=== PATIENT | female | born 2000 | race African-American/Black ===

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

== ENCOUNTER 2020-02-09 11:51 | Emergency (ER) | payer OTHER ==
[~2020-02-09] VITALS: Ht 154.9 cm; Wt 73.0 kg
[~2020-02-09 11:51] MED LIST changes: +PHEN100T82 PO; +SULF1TAB24 PO
[2020-02-09 12:25] LABS: BILIRUBIN,URINE NEGATIVE (NEG); CLARITY,URINE CLOUDY; COLOR,URINE YELLOW; NITRITE,URINE NEGATIVE (NEG); PH,URINE 6.5 (<5.0-8.0); PROTEIN,URINE NEGATIVE (NEG-TRACE); UROBILINOGEN,URINE 0.2 mg/dL (0.2 mg/dL)
[2020-02-09 12:37] LABS: BACTERIA,URINE MODERATE /HPF (0-FEW); RBC,URINE 0 /HPF (0-2); WBC,URINE 20-40 /HPF (0-4)
[2020-02-09 13:25] VITALS: BP 119/71
[2020-02-09] MEDS ORDERED: TRIA15CR TP (14:01)
[2020-02-09] MEDS ORDERED: CEPH-264 PO (14:01)
--- NOTE | 2020-02-09 14:02 | PHYS DOC ---
Past Medical History Past Medical History: Asthma Past Surgical History: No Surgical History Smoking Status: Current Some Day Smoker Alcohol Use: None Drug Use: None General Adult EDM: Chief Complaint: PAIN ON URINATION HPI: HPI: Patient is a 19 year old female who presents with low mid abdominal dull aching for the last 2 weeks and for the last 3 days she has had some blood in her urine. She states for the last couple weeks she is also had small amount of vaginal discharge but states that she does not have any sexually transmitted diseases and does not want be treated for them today. 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 Patient is complaining of burning on urination also. Patient also complains of a 1 week left upper arm rash that is itchy and is not going away. Patient denies nausea, vomiting, diarrhea, headache, dizziness, fever, back pain, chest pain, shortness of air. Review of Systems: Review of Systems: Constitutional: Denies fever or chills. [] Eyes: Denies change in visual acuity. [] HENT: Denies nasal congestion or sore throat. [] Respiratory: Denies cough or shortness of breath. [] Cardiovascular: Denies chest pain or edema. [] GI: + abdominal pain, denies nausea, vomiting, bloody stools or diarrhea. [] : + dysuria. + Scant vaginal discharge [] Musculoskeletal: Denies back pain or joint pain. [] Integument: + Left arm rash. [] Neurologic: Denies headache, focal weakness or sensory changes. [] Endocrine: Denies polyuria or polydipsia. [] Lymphatic: Denies swollen glands. [] Psychiatric: Denies depression or anxiety. [] Heart Score: Risk Factors: Risk Factors: DM, Current or recent (<one month) smoker, HTN, HLP, family history of CAD, obesity. Risk Scores: Score 0 - 3: 2.5% MACE over next 6 weeks - Discharge Home Score 4 - 6: 20.3% MACE over next 6 weeks - Admit for Clinical Observation Score 7 - 10: 72.7% MACE over next 6 weeks - Early Invasive Strategies Allergies: Allergies: Allergies Coded Allergies Type Severity Reaction Last Updated Verified No Known Drug Allergies 05/12/17 No Physical Exam: PE: Constitutional: Well developed, well nourished, no acute distress, non-toxic appearance. [] HENT: Normocephalic, atraumatic, bilateral external ears normal, oropharynx moist, no oral exudates, nose normal. [] Eyes: PERRLA, EOMI, conjunctiva normal, no discharge. [] Neck: Normal range of motion, no tenderness, supple, no stridor. [] Cardiovascular:Heart rate regular rhythm, no murmur [] Lungs & Thorax: Bilateral breath sounds clear to auscultation [] Abdomen: Bowel sounds normal, soft, low mid tenderness, no masses, no pulsatile masses. [] Skin: Warm, dry, no erythema, left upper arm contact dermatitis rash. [] Back: No tenderness, no CVA tenderness. [] Extremities: No tenderness, no cyanosis, no clubbing, ROM intact, no edema. [] Neurologic: Alert and oriented X 3, normal motor function, normal sensory function, no focal deficits noted. [] Psychologic: Affect normal, judgement normal, mood normal. [] Current Patient Data: Labs: Laboratory Tests Test 02/09/20 12:10 02/09/20 12:12 Urine Collection Type Void Urine Color Yellow Urine Clarity Cloudy Urine pH 6.5 (<5.0-8.0) Urine Specific Aroda 1.020 (1.000-1.030) Urine Protein Negative mg/dL (NEG-TRACE) Urine Glucose (UA) Negative mg/dL (NEG) Urine Ketones (Stick) Negative mg/dL (NEG) Urine Blood Trace (NEG) Urine Nitrite Negative (NEG) Urine Bilirubin Negative (NEG) Urine Urobilinogen Dipstick 0.2 mg/dL (0.2 mg/dL) Urine Leukocyte Esterase Moderate (NEG) Urine RBC 0 /HPF (0-2) Urine WBC 20-40 /HPF (0-4) Urine Squamous Epithelial Cells Many /LPF Urine Bacteria Moderate /HPF (0-FEW) POC Urine HCG, Qualitative Hcg negative (Negative) Vital Signs: Vital Signs Date Time Temp Pulse Resp B/P (MAP) Pulse Ox O2 Delivery O2 Flow Rate FiO2 02/09/20 13:25 98.1 74 16 119/71 (87) 99 Room Air 98.1 EKG: EKG: [] Radiology/Procedures: Radiology/Procedures: [] Course & Med Decision Making: Course & Med Decision Making Pertinent Labs and Imaging studies reviewed. (See chart for details) See HPI. Patient has what looks like a contact dermatitis type rash to the left upper inner arm. Patient denies using any new lotions or soaps. There is no drainage or signs of infection. There is no swelling to the extremity. Abdomen is soft and nontender. No CVA tenderness. Afebrile. Urinalysis shows infection. I have also sent off for chlamydia gonorrhea check. Patient has a history of HPV, asthma and smoker. Patient is given triamcinolone cream for her rash and an antibiotic for her urinary tract infection. Patient is to follow-up with a medical office administrator or her primary care provider. [] Dragon Disclaimer: Dragon Disclaimer: This electronic medical record was generated, in whole or in part, using a voice recognition dictation system. Departure Departure Impression: Primary Impression: Urinary tract infection Qualified Codes: N39.0 - Urinary tract infection, site not specified; R31.9 - Hematuria, unspecified Additional Impression: Rash and nonspecific skin eruption Disposition: ID HOME SELF CARE/HOMELESS Referrals: LEONARD AVILES MD (PCP) Patient Instructions: Contact Dermatitis, [id number], Sexually Transmitted Disease, Urinary Tract Infection Additional Instructions: Follow-up with your primary care provider soon as possible. I have added on a Chlamydia gonorrhea test to your urine today you will be called in 48 hours only if it is positive. Take antibiotic as prescribed and drink plenty of fluids. Scripts Triamcinolone Acetonide (TRIAMCINOLONE ACETONIDE 0.5% CREAM) 15 Gm Cream..g. 1 RABIA TP BID for 5 Days, #15 GM 1 Refill Prov: PAULA HERNANDEZ QUANTITATIVE ANALYST DEVELOPER 02/09/20 Cephalexin (KEFLEX) 500 Mg Capsule 1 CAP PO BID for 7 Days, #14 CAP 0 Refills Prov: PAULA HERNANDEZ QUANTITATIVE ANALYST DEVELOPER 02/09/20 PAULA HERNANDEZ APRN Feb 09, 2020 14:02
== END 2020-02-09 14:15 | disposition home or self-care (01) ==
LOC: ER 11:51
DX: N39.0 Urinary tract infection, site not specified (principal); R31.9 Hematuria, unspecified; L25.9 Unspecified contact dermatitis, unspecified cause; J45.909 Unspecified asthma, uncomplicated; F17.200 Nicotine dependence, unspecified, uncomplicated
CPT/HCPCS: 81001; 81025; 87086; 87491; 87591; 99283

== ENCOUNTER 2020-12-01 02:50 | Emergency (ER) | payer OTHER ==
[~2020-12-01] VITALS: Ht 152.4 cm; Wt 77.3 kg
[~2020-12-01 02:50] MED LIST changes: +CEPH-264 PO; +TRIA15CR TP
[2020-12-01 03:06] LABS: BILIRUBIN,URINE NEGATIVE (NEG); CLARITY,URINE CLOUDY; COLOR,URINE YELLOW; NITRITE,URINE NEGATIVE (NEG); PROTEIN,URINE NEGATIVE (NEG-TRACE)
--- NOTE | 2020-12-01 03:14 | PHYS DOC ---
Past Medical History Past Medical History: Asthma Past Surgical History: No Surgical History Smoking Status: Current Some Day Smoker Alcohol Use: None Drug Use: None General Adult EDM: Chief Complaint: ABDOMINAL PAIN HPI: HPI: Patient is a 20 year old female who presents with 3 weeks of abdominal discomfort. Described as lower abdominal pain. Constant. Radiates to both the left and right side from the suprapubic area. Denies dysuria, but does endorse frequency and urgency. States LMP was approximately 10 days ago. Sexually active with one partner currently, 3 in the last year. Does not use any form of contraception. States that she is trying to get . States she had 1 day of white discharge, but otherwise denies any vaginal discharge. She does have a history of gonorrhea and chlamydia, last 1 year ago. States that she did receive full course of treatment. No vaginal bleeding outside of her usual menstrual cycle. Some mild nausea, but no vomiting. No diarrhea or constipation. No blood in stools Review of Systems: Review of Systems: Constitutional: Denies fever or chills. [] Eyes: Denies change in visual acuity. [] HENT: Denies nasal congestion or sore throat. [] Respiratory: Denies cough or shortness of breath. [] Cardiovascular: Denies chest pain or edema. [] GI: Reports abdominal pain and nausea. Denies vomiting, bloody stools or diarrhea. [] : Denies dysuria. Reports urinary urgency and frequency. [] Musculoskeletal: Denies back pain or joint pain. [] Integument: Denies rash. [] Neurologic: Denies headache, focal weakness or sensory changes. [] Endocrine: Denies polyuria or polydipsia. [] Lymphatic: Denies swollen glands. [] Psychiatric: Denies depression or anxiety. [] Heart Score: C/O Chest Pain: N/A Allergies: Allergies: Allergies Coded Allergies Type Severity Reaction Last Updated Verified I S O L A T I O N *CONTACT* Allergy Unknown 02/12/20 Yes No Known Medication Allergies Allergy Unknown 02/12/20 Yes Physical Exam: PE: Constitutional: Well developed, well nourished, no acute distress, non-toxic appearance. [] HENT: Normocephalic, atraumatic, bilateral external ears normal, oropharynx moist, no oral exudates, nose normal. [] Eyes: PERRLA, EOMI, conjunctiva normal, no discharge. [] Neck: Normal range of motion, no tenderness, supple, no stridor. [] Cardiovascular:Heart rate regular rhythm, no murmur [] Lungs & Thorax: Bilateral breath sounds clear to auscultation [] Abdomen: Mild diffuse abdominal tenderness, reports tenderness in all 4 qu adrants. No rebound or guarding. Soft. Skin: Warm, dry, no erythema, no rash. [] Back: No tenderness, no CVA tenderness. [] Extremities: No tenderness, no cyanosis, no clubbing, ROM intact, no edema. [] Neurologic: Alert and oriented X 3, normal motor function, normal sensory function, no focal deficits noted. [] Psychologic: Affect normal, judgement normal, mood normal. [] Current Patient Data: Labs: Laboratory Tests Test 12/01/20 02:59 POC Urine HCG, Qualitative Hcg negative (Negative) EKG: EKG: [] Radiology/Procedures: Radiology/Procedures: [] Course & Med Decision Making: Course & Med Decision Making Pertinent Labs and Imaging studies reviewed. (See chart for details) Patient 20-year-old female who presents with 3 weeks of lower abdominal pain, urgency, frequency. On arrival is afebrile, hemodynamically stable. Heart rate in the 70s. Well-appearing overall with mild tenderness diffusely on exam. We will obtain labs including CBC, CMP, UA, Urine GC/chlamydia, urine for initial work-up. Given lack of vaginal symptoms will not treat for GC/Chlamydia empirically, will await PCR. We will defer imaging until initial labs returned. --- Urine negative. CBC, CMP unremarkable. No leukocytosis. Given weeks of symptoms, the absence of leukocytosis is quite reassuring against surgical intra-abdominal process. UA does appear infected, and UTI would be consistent with symptom complex. We will treat with cefdinir. Stressed the importance of reevaluation by her PCP to ensure symptoms are resolving. Return precautions discussed. Dori Disclaimer: Dori Disclaimer: This electronic medical record was generated, in whole or in part, using a voice recognition dictation system. Departure Departure Impression: Primary Impression: UTI (urinary tract infection) Condition: STABLE Referrals: LEONARD AVILES MD (PCP) Schedule an appointment for later this week ( or Tuesday) Additional Instructions: It appears you have a urinary tract infection. Please take the full course of antibiotics (cefdinir) as prescribed. Please monitor your symptoms, and if you do not have improvement in symptoms after ~5 days we may need to consider other diagnoses. For this reason please follow-up with your PCP late this week. If you develop high fever, shaking chills, severe abdominal pain, or other new/concerning symptoms please return to the emergency department for reevaluation. We are not treating you for gonorrhea/chlamydia, your test will take several days to return. Scripts Cefdinir (CEFDINIR) 300 Mg Capsule 1 CAP PO BID, #14 CAP Prov: FARRAH MEJIA MD 12/01/20 FARRAH MEJIA MD Dec 01, 2020 03:14
[2020-12-01 03:15] LABS: RBC,URINE RARE /HPF (0-2)
[2020-12-01 03:16] LABS: BACTERIA,URINE MOD /HPF (0-FEW)
[2020-12-01 03:23] LABS: BASO % 1 % (0-3); EOS # 0.1 x10^3/uL (0.0-0.7); EOS % 1 % (0-3); HEMATOCRIT 38.3 % (36.0-47.0); HEMOGLOBIN 13.2 g/dL (12.0-15.5); LYMPH # 3.3 x10^3/uL (1.0-4.8); LYMPH % 39 % (24-48); MEAN CORPUSCULAR HEMOGLOBIN 32 pg (25-35); MEAN CORPUSCULAR HGB CONC 35 g/dL (31-37); MEAN CORPUSCULAR VOLUME 92 fL (79-100); MONO # 0.8 x10^3/uL (0.0-1.1); MONO % 9 % (0-9); NEUT # 4.3 x10^3/uL (1.8-7.7); NEUT % 50 % (31-73); PLATELET COUNT 296 x10^3/uL (140-400); RED BLOOD COUNT 4.17 x10^6/uL (3.50-5.40); RED CELL DISTRIBUTION WIDTH 13.2 % (11.5-14.5); WHITE BLOOD COUNT 8.5 x10^3/uL (4.0-11.0)
[2020-12-01 03:43] LABS: CALCIUM 8.8 mg/dL (8.5-10.1); CREATININE 0.6 mg/dL (0.6-1.0); GFR 154.2; POTASSIUM 4.1 mmol/L (3.5-5.1)
[2020-12-01 03:49] LABS: ALBUMIN 4.1 g/dL (3.4-5.0); ALBUMIN/GLOBULIN RATIO 1.1 (1.0-1.7); TOTAL BILIRUBIN 0.6 mg/dL (0.2-1.0); TOTAL PROTEIN 7.7 g/dL (6.4-8.2)
[2020-12-01 04:03] VITALS: BP 115/74
[2020-12-01] MEDS ORDERED: CEFD300C PO (04:14)
== END 2020-12-01 04:22 | disposition home or self-care (01) ==
LOC: ER 02:50
DX: N39.0 Urinary tract infection, site not specified (principal); J45.909 Unspecified asthma, uncomplicated; F17.200 Nicotine dependence, unspecified, uncomplicated; Z91.041 Radiographic dye allergy status
CPT/HCPCS: 80053; 81001; 81025; 83690; 85025; 87086; 87491; 87591; 99283

== ENCOUNTER 2021-02-01 20:34 | Emergency (ER) | payer OTHER ==
[~2021-02-01] VITALS: Ht 162.6 cm; Wt 86.0 kg
[~2021-02-01 20:34] MED LIST changes: +CEFD300C PO
--- NOTE | 2021-02-01 21:27 | PHYS DOC ---
Past Medical History Past Medical History: Asthma Past Surgical History: No Surgical History Smoking Status: Never Smoker Alcohol Use: None Drug Use: None General Adult EDM: Chief Complaint: Chest pain and abdominal pain HPI: HPI: Patient is 20 year old female here for lower abdominal pain for 3-4 days. Roman medellin states her abdominal pain is intermittent and happens about 2 times a month, sometimes associated with her period but not always. She has no pain in the upper abdomen and denies nausea, vomiting, constipation or diarrhea. She is also complaining of a mass inside her left labia that comes and goes. She states the mass is tender, but denies vaginal bleeding or discharge. Patient also reports left sided chest wall pain and shortness of breath. Pain is localized to the left chest wall and does not radiate to her jaw or arm. She has no past medical or surgical history. She is not currently taking any medications. Review of Systems: Review of Systems: Constitutional: Denies fever or chills Eyes: Denies redness or eye pain HENT: Denies nasal congestion or sore throat Respiratory: Denies cough or shortness of breath Cardiovascular: Reports chest pain. Denies palpitations GI: Reports abdominal pain, Denies nausea, or vomiting : Reports vaginal mass. Denies dysuria or hematuria Musculoskeletal: Denies back pain or joint pain Integument: Denies rash or skin lesions Neurologic: Denies headache, focal weakness or sensory changes Complete systems were reviewed and found to be within normal limits, except as documented in this note. Heart Score: C/O Chest Pain: Yes HEART Score for Chest Pain: HEART Score for Chest Pain Response (Comments) Value History Slighlty/Non-Suspicious 0 Age < 45 0 Risk Factors No Risk Factors 0 Troponin < Normal Limit 0 Total 0 Risk Factors: Risk Factors: DM, Current or recent (<one month) smoker, HTN, HLP, family history of CAD, obesity. Risk Scores: Score 0 - 3: 2.5% MACE over next 6 weeks - Discharge Home Score 4 - 6: 20.3% MACE over next 6 weeks - Admit for Clinical Observation Score 7 - 10: 72.7% MACE over next 6 weeks - Early Invasive Strategies Allergies: Allergies: Allergies Coded Allergies Type Severity Reaction Last Updated Verified I S O L A T I O N *CONTACT* Allergy Unknown 02/12/20 Yes No Known Medication Allergies Allergy Unknown 02/12/20 Yes Physical Exam: PE: Constitutional: Well developed, well nourished, no acute distress, non-toxic appearance HENT: Normocephalic, atraumatic Eyes: PERRL, EOMI, conjunctiva normal, no discharge Neck: Normal range of motion, no tenderness, supple Lungs & Thorax: No respiratory distress, equal chest rise and fall. Regular heart rate and rhythm. Lungs are clear to auscultation bilaterally. Abdomen: Soft,not rigid. Tenderness to palpation in bilateral suprapubic region. No guarding or rebound. Pelvic exam: white discharge from the vaginal vault.small, tender bartholin cyst on the left labia which started draining belcher-brown discharge Skin: Warm, dry, no erythema, no rash Back: No tenderness, no CVA tenderness Extremities: No tenderness, ROM intact, no edema Neurologic: Alert and oriented X 3, normal motor function, normal sensory function, no focal deficits noted Psychologic: Affect normal, judgment normal EKG: EKG: @2105 NSR at 91 BPM QRS 76 QT 356 QTc 440. Non specific Q waves in I, AVL. Incom plete RBBB at V1. No ST Elevation. Course & Med Decision Making: Course & Med Decision Making 20 year old female here for pelvic pain and mass in her vulva for 3-4 days. She denies any nausea or vomiting. Pain is localized to the bilateral suprapubic region. Pelvic exam shows white discharge from the vaginal vault and small bartholin cyst on the left labia which started draining belcher-brown discharge. She has no fever or chills. She also complained of left sided chest pain. EKG was normal and likely to be musculoskeletal. Patient given antibiotics for home. Patient stable for discharge with outpatient follow-up with ORANGE PICKER MACHINE OPERATOR. Discussed findings and plan with patient, who acknowledges understanding and agreement. Dori Disclaimer: Dori Disclaimer: This electronic medical record was generated, in whole or in part, using a voice recognition dictation system. Departure Departure Impression: Primary Impression: Abscess of left Bartholin's gland Additional Impression: Atypical chest pain Disposition: HOME / SELF CARE / HOMELESS Condition: STABLE Referrals: LEONARD AVILES MD (PCP) Patient Instructions: Bartholin's Cyst or Abscess, Chest Pain (Nonspecific), [id number] Additional Instructions: Can also take [id number] ibuprofen and or Tylenol for pain or discomfort.\ Follow-up closely with your ORANGE PICKER MACHINE OPERATOR. Take antibiotic as prescribed. Refrain from sexual activity until completion of antibiotic therapy. Scripts Tramadol Hcl (TRAMADOL HCL) 50 Mg Tablet 50 MG PO Q6HRS PRN for PAIN, #14 TAB Prov: MOOKIE BEEBE DO 02/01/21 Clindamycin Hcl (CLINDAMYCIN HCL) 300 Mg Capsule 1 CAP PO QID for Infection for 7 Days, #28 CAP Prov: MOOKIE BEEBE DO 02/01/21 Cefixime (SUPRAX) 400 Mg Capsule 1 CAP PO DAILY for 7 Days, #7 CAP 0 Refills Prov: MOOKIE BEEBE DO 02/01/21 MOOKIE BEEBE DO Feb 01, 2021 21:27
[2021-02-01 21:33] LABS: BILIRUBIN,URINE NEGATIVE (NEG); CLARITY,URINE CLEAR; COLOR,URINE YELLOW; NITRITE,URINE NEGATIVE (NEG); PH,URINE 6.5 (<5.0-8.0); PROTEIN,URINE NEGATIVE (NEG-TRACE)
[2021-02-01 21:48] LABS: BACTERIA,URINE MANY /HPF (0-FEW); RBC,URINE OCC /HPF (0-2)
--- NOTE | 2021-02-01 21:56 | EKG ---
[facility] [address] [place] [address] Test Date: 2021-02-01 Test Time: 20:54:26 Pat Name: IRLANDA BLANCHARD Department: Room: Gender: F Trip Rider: : 2000 Requested By: MOOKIE BEEBE Order Number: [id number] Reading MD: Measurements Intervals [place] Rate: 91 P: 48 [place]: 130 QRS: 11 QRSD: 76 T: 34 QT: 356 QTc: 440 Interpretive Statements SINUS RHYTHM ATRIAL PREMATURE COMPLEX(ES) R-S TRANSITION ZONE IN V LEADS DISPLACED TO THE RIGHT NO SPECIFIC ECG ABNORMALITIES RI6.01 No previous ECG available for comparison
[2021-02-01 22:03] VITALS: BP 110/70
--- NOTE | 2021-02-01 22:19 | RAD ---
EXAM: PA and Lateral Views of the Chest DATE: 02/01/2021 9:55 PM INDICATION: Reason: left sided chest wall pain / Spl. Instructions: / History: COMPARISON: No Prior FINDINGS: The heart is not enlarged. Mediastinal and hilar contours are normal. No focal parenchymal airspace opacity. No pleural effusion or pneumothorax. IMPRESSION: 1. No radiographic evidence for acute cardiopulmonary process. Electronically signed by: Eddi Francois MD (02/01/2021 10:16 PM) [place]
[2021-02-01] MEDS ORDERED: CLIN-94 PO (22:34)
[2021-02-01] MEDS ORDERED: CEFI400C PO (22:34)
[2021-02-01] MEDS ORDERED: TRAM50TA PO (22:34)
[2021-02-01] MEDS ORDERED: traMADol 50 MG TABLET PO ONE (23:00)
[2021-02-01] MEDS ORDERED: KETOROLAC 30 MG/ML VIAL. IVP ONE (23:00)
[2021-02-01] MEDS ORDERED: CLINDAMYCIN HCL 150 MG CAPSULE. PO ONE (23:00)
[2021-02-03 20:09] LABS: GC PROBE Negative (Negative)
== END 2021-02-01 23:02 | disposition home or self-care (01) ==
LOC: ER 20:34
DX: N75.1 Abscess of Bartholin's gland (principal); R07.89 Other chest pain; J45.909 Unspecified asthma, uncomplicated; Z91.041 Radiographic dye allergy status
CPT/HCPCS: 71046; 81001; 81025; 87086; 87491; 87591; 93005; 96374; 99285; J1885; Q0111

== ENCOUNTER 2021-04-11 01:14 | Emergency (ER) | payer OTHER ==
[~2021-04-11] VITALS: Ht 152.4 cm; Wt 72.7 kg
[~2021-04-11 01:14] MED LIST changes: +CEFI400C PO; +CLIN-94 PO; +TRAM50TA PO
--- NOTE | 2021-04-11 01:42 | PHYS DOC ---
Past Medical History Past Medical History: Asthma Additional Past Medical Histor: STD'S Past Surgical History: No Surgical History Smoking Status: Current Some Day Smoker Alcohol Use: Occasionally Drug Use: None General Adult HPI: HPI: Melena Patient is a 20 year old female who presents with diffuse pelvic pain, slightly worse in the left than the right. She reports nausea and vomiting. Symptoms began yesterday and progressively worsened this morning. She denies constipation or diarrhea. She denies urinary symptoms. She reports mild, white vaginal discharge. She has a history of gonorrhea, chlamydia, trichomonas. She denies any known history of PID, denies any history of ovarian issues. No history of previous abdominal or pelvic surgeries. LMP over 30 days ago. She is unsure why she has missed it. She has not taken a home test. She has multiple male sexual partners, some of them are new. She does not use protection each time. She reports that this does not feel like her previous STD symptoms. Reports 1-2 episodes of diarrhea. Medic easier. She denies any fevers or chills. She denies anorexia. Review of Systems: Review of Systems: Constitutional: Denies fever or chills. [] HENT: Denies nasal congestion or sore throat. [] Respiratory: Denies cough or shortness of breath. [] Cardiovascular: Denies chest pain or edema. [] GI: Pain, nausea, vomiting, diarrhea. : Denies urinary symptoms. Scant white vaginal discharge. Pelvic pain. Musculoskeletal: Denies back pain or joint pain. [] Integument: Denies rash. [] Neurologic: Denies headache, focal weakness or sensory changes. [] Psychiatric: Denies depression or anxiety. [] Heart Score: C/O Chest Pain: No Risk Factors: Risk Factors: DM, Current or recent (<one month) smoker, HTN, HLP, family histo ry of CAD, obesity. Risk Scores: Score 0 - 3: 2.5% MACE over next 6 weeks - Discharge Home Score 4 - 6: 20.3% MACE over next 6 weeks - Admit for Clinical Observation Score 7 - 10: 72.7% MACE over next 6 weeks - Early Invasive Strategies Allergies: Allergies: Allergies Coded Allergies Type Severity Reaction Last Updated Verified I S O L A T I O N *CONTACT* Allergy Unknown 02/12/20 Yes No Known Medication Allergies Allergy Unknown 02/12/20 Yes Physical Exam: PE: Constitutional: Well developed, well nourished, no acute distress, non-toxic appearance. [] HENT: Normocephalic, atraumatic Eyes: Conjunctiva normal, no discharge. [] Neck: Normal range of motion, no tenderness, supple, no stridor. [] Cardiovascular:Heart rate regular rhythm, +2 radial and +2 posterior tibial pulses bilaterally Lungs & Thorax: Bilateral breath sounds clear to auscultation [] Abdomen: Abdomen is soft, nondistended, normal bowel sounds. Mild left pelvic tenderness to palpation. No other areas of focal tenderness. No abdominal tenderness. No CVA tenderness. No flank abdominal ecchymoses. No palpable pulsatile mass. No palpable organomegaly. : No external lesions noted. There is very scant white vaginal discharge. There is no erythema. Cervix is clear, nonerythematous. No purulent discharge. No CMT. No tenderness to palpation on bimanual exam. No bimanual fullness of either adnexa. Skin: Warm, dry, no erythema, no rash. [] Back: No tenderness, no CVA tenderness. [] Extremities: No tenderness, no cyanosis, no clubbing, ROM intact, no edema. [] Neurologic: Alert and oriented X 3, normal motor function, normal sensory function, no focal deficits noted. [] Psychologic: Affect normal, judgement normal, mood normal. [] EKG: EKG: [] Radiology/Procedures: Radiology/Procedures: IMAGING REPORT Signed PATIENT: IRLANDA BLANCHARD DACCOUNT: [id number] : 2000 LOCATION: ER AGE: 20 SEX: F EXAM STATUS: REG ER ORD. PHYSICIAN: JAVI CHRISTINE DO REASON: left pelvic pain PROCEDURE: PELVIS W/TV US PELVIS W/TV: 04/11/2021 3:00 AM INDICATION: 20 years old Female. Left pelvic pain COMPARISON: None. TECHNIQUE: Transabdominal and transvaginal sonographic evaluation of the pelvis was performed. Grayscale, color Doppler and spectral waveform analysis were utilized. FINDINGS: UTERUS: Size: 6.4 x 4.9 x 2.9 cm. Masses: None. Endometrium: 3 mm. No suspicious vascularity is identified. RIGHT OVARY: 2.6 x 1.3 x 1.5 cm. Ovary is normal in appearance. LEFT OVARY: 2.0 x 1.4 x 1.3 cm. Ovary is normal in appearance. Arterial and venous waveform are identified within the ovaries bilaterally at the time of imaging. FREE FLUID: None. URINARY BLADDER: Unremarkable. IMPRESSION: Perfusion is noted to the ovaries bilaterally at the time of imaging. Electronically signed by: Adal Puckett MD (04/11/2021 3:31 AM) [facility] DICTATED and SIGNED BY: ADAL PUCKETT MD DATE: 04/11/21 [id number] 0 Course & Med Decision Making: Course & Med Decision Making Pertinent Labs and Imaging studies reviewed. (See chart for details) The patient is given IV fluids, IV Zofran, IV morphine. She is resting comfortably, feeling much better. She is benign, nonsurgical abdominal exam. No tenderness on repeat exam. Ultrasound is unremarkable. Clue cells noted on wet prep. Clinically, she does not manifest evidence of cervicitis, no evidence of PID. No diarrhea produced here. No vomiting here. She is tolerating oral fluids that difficulty. I have discussed the findings, differential diagnosis and plan of care with her. She understands that gonorrhea chlamydia cultures are pending, she should be notified within about 48 hours of these results. I recommend pelvic rest, sexual abstinence. She should follow-up with her PCP. She verbalized understanding, she feels comfortable with the plan for discharge home. Dori Disclaimer: Dori Disclaimer: This electronic medical record was generated, in whole or in part, using a voice recognition dictation system. Departure Departure Impression: Primary Impression: Pelvic pain Additional Impression: Bacterial vaginosis Disposition: HOME / SELF CARE / HOMELESS Condition: STABLE Referrals: LEONARD AVILES MD (PCP) Patient Instructions: Bacterial Vaginosis, Pelvic Pain, Female Additional Instructions: Use the medication as needed/as directed. Take the full course of antibiotics. Please obtain from sexual intercourse. Return to the ER for more severe pain, uncontrolled vomiting, dehydration, temperature of 100.4 or higher or for any other concerns. Please drink plenty of fluids, eat a bland diet, stay hydrated. Your cultures are pending, and if they are abnormal or positive, you should be notified within about 2 to 3 days. Scripts Metronidazole (METROGEL-VAGINAL) 70 Gm Gel.w.appl 1 APPFUL VG QHS for 5 Days, #1 EACH 0 Refills Prov: JAVI CHRISTINE DO 04/11/21 Tramadol Hcl (ULTRAM) 50 Mg Tablet 1 TAB PO PRN Q6HRS PRN for pain MDD 4 Tablet(s), #15 TAB 0 Refills Prov: JAVI CHRISTINE DO 04/11/21 Ondansetron Hcl (ONDANSETRON HCL) 4 Mg Tablet 1 TAB PO PRN Q8HRS PRN for VOMITING, #20 TAB 1 Refill Prov: JAVI CHRISTINE DO 04/11/21 JAVI CHRISTINE DO Apr 11, 2021 01:42
[2021-04-11 02:26] LABS: BASO # 0.1 x10^3/uL (0.0-0.2); BASO % 1 % (0-3); EOS # 0.1 x10^3/uL (0.0-0.7); EOS % 1 % (0-3); HEMATOCRIT 39.2 % (36.0-47.0); HEMOGLOBIN 13.3 g/dL (12.0-15.5); LYMPH # 2.4 x10^3/uL (1.0-4.8); LYMPH % 35 % (24-48); MEAN CORPUSCULAR HEMOGLOBIN 32 pg (25-35); MEAN CORPUSCULAR HGB CONC 34 g/dL (31-37); MEAN CORPUSCULAR VOLUME 93 fL (79-100); MONO # 0.7 x10^3/uL (0.0-1.1); MONO % 10 % (0-9); NEUT # 3.5 x10^3/uL (1.8-7.7); NEUT % 53 % (31-73); PLATELET COUNT 287 x10^3/uL (140-400); RED BLOOD COUNT 4.21 x10^6/uL (3.50-5.40); RED CELL DISTRIBUTION WIDTH 12.7 % (11.5-14.5); WHITE BLOOD COUNT 6.7 x10^3/uL (4.0-11.0)
[2021-04-11 02:27] LABS: BILIRUBIN,URINE NEGATIVE (NEG); CLARITY,URINE CLEAR; COLOR,URINE YELLOW; NITRITE,URINE NEGATIVE (NEG); PH,URINE 5.5 (<5.0-8.0); PROTEIN,URINE NEGATIVE (NEG-TRACE); UROBILINOGEN,URINE 0.2 mg/dL (0.2 mg/dL)
[2021-04-11] MEDS ORDERED: MORPHINE SULFATE 4 MG/ML INJ. IVP ONE (02:30)
[2021-04-11] MEDS ORDERED: IV NORMAL SALINE 1000ML BAG 1,000 ML IV ONE (02:30)
[2021-04-11] MEDS ORDERED: ONDANSETRON PF 4 MG/2 ML VIAL. IVP ONE (02:30)
[2021-04-11 02:32] LABS: BACTERIA,URINE FEW /HPF (0-FEW); RBC,URINE 0 /HPF (0-2)
--- NOTE | 2021-04-11 03:34 | RAD ---
US PELVIS W/TV: 04/11/2021 3:00 AM INDICATION: 20 years old Female. Left pelvic pain COMPARISON: None. TECHNIQUE: Transabdominal and transvaginal sonographic evaluation of the pelvis was performed. Marco ignacio, color Doppler and spectral waveform analysis were utilized. FINDINGS: UTERUS: Size: 6.4 x 4.9 x 2.9 cm. Masses: None. Endometrium: 3 mm. No suspicious vascularity is identified. RIGHT OVARY: 2.6 x 1.3 x 1.5 cm. Ovary is normal in appearance. LEFT OVARY: 2.0 x 1.4 x 1.3 cm. Ovary is normal in appearance. Arterial and venous waveform are identified within the ovaries bilaterally at the time of imaging. FREE FLUID: None. URINARY BLADDER: Unremarkable. IMPRESSION: Perfusion is noted to the ovaries bilaterally at the time of imaging. Electronically signed by: Raegan Buckner MD (04/11/2021 3:31 AM) [facility]
[2021-04-11 03:59] LABS: CALCIUM 8.4 mg/dL (8.5-10.1); CREATININE 0.6 mg/dL (0.6-1.0); GFR 154.2; POTASSIUM 3.8 mmol/L (3.5-5.1)
[2021-04-11 04:05] LABS: ALBUMIN 4.2 g/dL (3.4-5.0); ALBUMIN/GLOBULIN RATIO 1.2 (1.0-1.7); TOTAL BILIRUBIN 0.5 mg/dL (0.2-1.0); TOTAL PROTEIN 7.7 g/dL (6.4-8.2)
[2021-04-11 04:46] VITALS: BP 104/72
[2021-04-11] MEDS ORDERED: METR70GE14 VG (04:55)
[2021-04-11] MEDS ORDERED: TRAM-48 PO (04:55)
[2021-04-11] MEDS ORDERED: ONDA-84 PO (04:55)
[2021-04-11 06:19] LABS: PREG TEST PT QUAL NEGATIVE (NEG)
[2021-04-13 18:09] LABS: GC PROBE Negative (Negative)
== END 2021-04-11 05:09 | disposition home or self-care (01) ==
LOC: ER 01:14
DX: R10.2 Pelvic and perineal pain (principal); N76.0 Acute vaginitis; B96.89 Other specified bacterial agents as the cause of diseases classified elsewhere; R11.2 Nausea with vomiting, unspecified; J45.909 Unspecified asthma, uncomplicated; F17.200 Nicotine dependence, unspecified, uncomplicated; Z91.041 Radiographic dye allergy status
CPT/HCPCS: 76830; 76856; 80053; 81001; 81025; 83690; 84703; 85025; 87491; 87591; 96361; 96374; 96375; 99284; J2270; J2405; J7030; Q0111